=== PATIENT | male | born 1955 | race African-American/Black ===

== ENCOUNTER 2019-06-12 21:00 | Emergency (ER) | payer SELFPAY ==
[~2019-06-12] VITALS: Ht 172.7 cm; Wt 104.3 kg
--- NOTE | 2019-06-12 21:21 | Emergency Room Report ---
History of Present Illness General Chief Complaint: Abdominal Pain Source: Patient Present Illness HPI 64-year-old male with a history of hypertension, and gastric ulcers. Who is presenting with right upper quadrant abdominal pain. He states severe pain for 2 days duration and he was seen at [facility] yesterday. Patient had CT scan which was found to be normal and he was given a diagnosis of abdominal pain. He states his pain is still persistent. He had 4 episodes of vomiting today after eating soup. And one episode of loose stool which was nonbloody. Patient has no prior abdominal surgeries. Patient is not taking anything for his abdominal pain. As per patient he was not discharged on any medications. Patient stating he needs morphine to control his pain at this time. Allergies: Coded Allergies: No Known Allergies (Unverified , 06/12/19) Nursing Documentation-[facility] Past Medical History: No History, Except For Hx Hypertension: Yes Review of Systems Constitutional: Denies: chills, fever Respiratory: Denies: cough, shortness of breath Cardiovascular: Denies: chest pain, palpitations Gastrointestinal: Reports: abdominal pain, diarrhea, vomiting Genitourinary: Denies: hematuria, pain Musculoskeletal: Denies: joint swelling Skin: Denies: rash, lesions Neurological: Denies: headache, dizziness Physical Exam Vital Signs Date Time Temp Pulse Resp B/P (MAP) Pulse Ox O2 Delivery O2 Flow Rate FiO2 06/12/19 21:03 99.1 89 18 138/87 (104) 96 Room Air Sp02 EP Interpretation: reviewed General Appearance: well appearing, no apparent distress, non-toxic Head: normocephalic, atraumatic Eyes: bilateral eye normal inspection ENT: hearing grossly normal, EOM grossly intact, moist mucus membranes Neck: supple Respiratory: lungs clear, normal breath sounds, no respiratory distress, speaking full sentences Cardiovascular #1: regular rate, rhythm, normal capillary refill Cardiovascular #2: 2+ radial (R), 2+ radial (L) Gastrointestinal: non tender, soft, no mass, no organomegaly, no peritonitis, no bruit, non-distended, no guarding, no hernia Rectal: deferred Musculoskeletal: moves extm spontaneously, no lower extremity edema Neurologic: grossly normal Psychiatric: mood/affect normal Skin: warm/dry, normal turgor Medical Decision Making Diagnostic Impression: Primary Impression: Abdominal pain ER Course 64-year-old male with right upper quadrant abdominal pain found to have history of gastric ulcers and hypertension. Recently had full work-up neighboring hospital negative CT scan. Patient asking for pain medications by name, no known history of drug abuse. Differential includes gastric ulcer, gastroenteritis, GERD, gallbladder pain. Will perform lab testing, right upper quadrant ultrasound, and obtain records from [facility] CT/MRI/US Diagnostic Results CT/MRI/US Diagnostic Results : Impression Final Report EXAM: CT Abdomen and Pelvis With Intravenous Contrast CLINICAL HISTORY: ABD PAIN TECHNIQUE: Axial computed tomography images of the abdomen and pelvis with intravenous contrast. CTDI is 35.3 mGy and DLP is 2212.9 mGy-cm. One or more of the following dose reduction techniques were used: automated exposure control, adjustment of the mA and/or kV according to patient size, use of iterative reconstruction technique. COMPARISON: No relevant prior studies available. FINDINGS: Lung bases: Unremarkable. No mass. No consolidation. ABDOMEN: Liver: Unremarkable. No mass. Gallbladder and bile ducts: Unremarkable. No calcified stones. No ductal dilation. Pancreas: Unremarkable. No mass. No ductal dilation. Spleen: Unremarkable. No splenomegaly. Adrenals: Incompletely characterized adrenal nodules bilaterally, 1.5 cm on the left and 1.1 cm on the right. Kidneys and ureters: Retroaortic left renal vein. No hydronephrosis. Stomach and bowel: Unremarkable. No obstruction. No mucosal thickening. PELVIS: Appendix: Normal appendix. Bladder: Unremarkable. No mass. Reproductive: Unremarkable as visualized. ABDOMEN and PELVIS: Intraperitoneal space: Unremarkable. No free air. No significant fluid collection. Bones/joints: No acute fracture. No dislocation. Soft tissues: Unremarkable. Vasculature: Unremarkable appearance of the abdominal aorta. Lymph nodes: Unremarkable. No enlarged lymph nodes. IMPRESSION: 1. No acute process in the abdomen or pelvis. 2. Incompletely characterized adrenal nodules bilaterally, 1.5 cm on the left and 1.1 cm on the right. Consider follow-up CT or MRI in 12 months to ensure stability. Last Vital Signs Date Time Temp Pulse Resp B/P (MAP) Pulse Ox O2 Delivery O2 Flow Rate FiO2 06/12/19 21:03 99.1 89 18 138/87 (104) 96 Room Air Status: improved Reevaluation Impression Patient's pain improved. Reviewed CT scan with patient. Patient to be discharged with follow-up with primary care doctor and GI specialist. Patient recommended Carafate. Disposition: HOME, SELF-CARE Condition: Stable Scripts Sucralfate* (CARAFATE*) 1 Gm Tablet 1 GM ORAL FOUR TIMES A DAY for 10 Days, #40 TAB Prov: Rom Narvaez M.D. 06/13/19 Referrals: [facility] Patient Instructions: Abdominal Pain, Adult Rom Narvaez M.D. Jun 12, 2019 21:21
[2019-06-12 21:55] VITALS: BP 138/87
--- NOTE | 2019-06-12 21:55 | NUR ---
ER Nurse Note: Pt walked in c/o abd pain since 2 days. Pt stated he went to [facility] one day ago for the same reason. Pt stated he was dx with ulcers but did not follow up with primary care physican. Pt stated he has nausea but no vomiting since last night. ERMD at pt side; will continue to [facility].
[2019-06-12] MEDS ORDERED: Sucralfate 1gm tab ORAL ONE (22:15)
[2019-06-12 22:21] LABS: HEMATOCRIT 45.9 % (42.0-52.0); HEMOGLOBIN 16.3 G/DL (14.2-18.0); MEAN CORPUSCULAR VOLUME 84 FL (80-99); PLATELET COUNT 178 K/UL (150-450); RED BLOOD COUNT 5.46 M/UL (4.70-6.10); RED CELL DISTRIBUTION WIDTH 10.7 % (11.6-14.8); WHITE BLOOD COUNT 18.9 K/UL (4.8-10.8)
[2019-06-12 22:22] LABS: BASOPHILS % (AUTO) 0.9 % (0.0-2.0); EOSINOPHILS % (AUTO) 0.1 % (0.0-3.0); LYMPHOCYTES % (AUTO) 11.1 % (20.0-45.0); MONOCYTES % (AUTO) 7.8 % (1.0-10.0); NEUTROPHILS % (AUTO) 80.1 % (45.0-75.0)
[2019-06-12 22:28] LABS: ANION GAP 12 mmol/L (5-15); BLOOD UREA NITROGEN 23 mg/dL (7-18); CALCIUM 9.3 MG/DL (8.5-10.1); CARBON DIOXIDE 27 MMOL/L (21-32); CHLORIDE 102 MMOL/L (98-107); CREATININE 1.5 MG/DL (0.55-1.30); SODIUM 141 MMOL/L (136-145)
[2019-06-12 22:32] LABS: ALANINE AMINOTRANSFERASE 22 U/L (12-78); ALBUMIN 4.4 G/DL (3.4-5.0); ALBUMIN/GLOBULIN RATIO 1.2 (1.0-2.7); ALKALINE PHOSPHATASE 57 U/L (46-116); ASPARTATE AMINO TRANSFERASE 14 U/L (15-37); BILIRUBIN,TOTAL 0.6 MG/DL (0.2-1.0)
[2019-06-12] MEDS ORDERED: Omnipaque-300 100ml vial INJ PRN (22:45)
--- NOTE | 2019-06-12 22:50 | Diagnostic Imaging Report ---
EXAM: US Abdomen Complete CLINICAL HISTORY: ABD PAIN TECHNIQUE: Real-time ultrasound of the abdomen with image documentation. COMPARISON: No relevant prior studies available. FINDINGS: Liver: Mild hepatic steatosis. No intrahepatic bile duct dilation. Gallbladder: Normal gallbladder. No stones. No mucosal thickening. Negative Shrestha's sign. No pericholecystic free fluid. Common bile duct: The common bile duct measures 3 mm. No stones. No dilation. Pancreas: Unremarkable as visualized. Kidneys: Unremarkable. No stones. No solid mass. No hydronephrosis. Spleen: No splenomegaly. Aorta: Unremarkable. No aneurysm. Inferior vena cava: Unremarkable. IMPRESSION: 1. No acute process in the abdomen. 2. Mild hepatic steatosis.
[2019-06-12 23:00] LABS: APPEARANCE,URINE CLEAR; BILIRUBIN, URINE NEGATIVE (NEGATIVE); GLUCOSE, URINE (UA) NEGATIVE (NEGATIVE); KETONES,URINE 1+ (NEGATIVE); LEUKOCYTE ESTERASE ,URINE NEGATIVE (NEGATIVE); NITRITE,URINE NEGATIVE (NEGATIVE); PH,URINE 6 (4.5-8.0); PROTEIN,URINE 2+ (NEGATIVE); UROBILINOGEN,URINE 1 MG/DL (0.0-1.0)
[2019-06-12 23:02] LABS: COLOR,URINE YELLOW
--- NOTE | 2019-06-13 00:35 | Diagnostic Imaging Report ---
EXAM: CT Abdomen and Pelvis With Intravenous Contrast CLINICAL HISTORY: ABD PAIN TECHNIQUE: Axial computed tomography images of the abdomen and pelvis with intravenous contrast. CTDI is 35.3 mGy and DLP is 2212.9 mGy-cm. One or more of the following dose reduction techniques were used: automated exposure control, adjustment of the mA and/or kV according to patient size, use of iterative reconstruction technique. COMPARISON: No relevant prior studies available. FINDINGS: Lung bases: Unremarkable. No mass. No consolidation. ABDOMEN: Liver: Unremarkable. No mass. Gallbladder and bile ducts: Unremarkable. No calcified stones. No ductal dilation. Pancreas: Unremarkable. No mass. No ductal dilation. Spleen: Unremarkable. No splenomegaly. Adrenals: Incompletely characterized adrenal nodules bilaterally, 1.5 cm on the left and 1.1 cm on the right. Kidneys and ureters: Retroaortic left renal vein. No hydronephrosis. Stomach and bowel: Unremarkable. No obstruction. No mucosal thickening. PELVIS: Appendix: Normal appendix. Bladder: Unremarkable. No mass. Reproductive: Unremarkable as visualized. ABDOMEN and PELVIS: Intraperitoneal space: Unremarkable. No free air. No significant fluid collection. Bones/joints: No acute fracture. No dislocation. Soft tissues: Unremarkable. Vasculature: Unremarkable appearance of the abdominal aorta. Lymph nodes: Unremarkable. No enlarged lymph nodes. IMPRESSION: 1. No acute process in the abdomen or pelvis. 2. Incompletely characterized adrenal nodules bilaterally, 1.5 cm on the left and 1.1 cm on the right. Consider follow-up CT or MRI in 12 months to ensure stability.
[2019-06-13] MEDS ORDERED: CARAFATE1 G1 ORAL (00:38)
[2019-06-13 01:10] VITALS: BP 128/80
--- NOTE | 2019-06-13 01:10 | NUR ---
ER Nurse Note: Pt seen, treated, cleared to be discharged per ERMD. Dicharge instructions given with repeat verbalization by pt. Encouraged pt follow up with primary care doctor within one week. Pt is aox4, on room air, with stable vital signs, no signs of distress. ID band and IV site removed; site clean and bandaged. Pt is able to ambulate with steady gait. pt took all belongings.
== END 2019-06-13 01:10 | disposition home or self-care (01) ==
LOC: EMR 21:30
DX: R10.11 Right upper quadrant pain (principal); R11.10 Vomiting, unspecified; I10 Essential (primary) hypertension
CPT/HCPCS: 36415; 74177; 76700; 80053; 81003; 83690; 84484; 85025; 96361; 96374; 96375; 99284; J2405; J7030; Q9967; S0028